=== PATIENT | male | born 1990 | race African-American/Black ===

== ENCOUNTER 2020-03-17 10:54 | Emergency (ER) | payer MEDICAID ==
[~2020-03-17] VITALS: Ht 175.3 cm; Wt 72.7 kg
[~2020-03-17 10:54] MED LIST: PALI39DI IM; RISP0.5T20 PO
[2020-03-17] MEDS ORDERED: LORazepam 1 MG TABLET PO ONE (11:30)
[2020-03-17] MEDS ORDERED: KETOROLAC TROMETHAMINE 60 MG/2 ML VIAL IM ONE (12:30)
[2020-03-17 13:05] VITALS: BP 137/81
[2020-03-17] MEDS ORDERED: HALO2 PO (21:50)
== END 2020-03-17 13:28 | disposition home or self-care (01) ==
LOC: EMS 10:55
DX: R07.89 Other chest pain (principal); F45.8 Other somatoform disorders; F15.90 Other stimulant use, unspecified, uncomplicated; J45.909 Unspecified asthma, uncomplicated; F17.200 Nicotine dependence, unspecified, uncomplicated; F12.90 Cannabis use, unspecified, uncomplicated; F19.90 Other psychoactive substance use, unspecified, uncomplicated
CPT/HCPCS: 36415; 71045; 84484; 93005; 99285; J1885

== ENCOUNTER 2020-03-17 21:43 | Emergency (ER) | payer MEDICAID ==
[~2020-03-17] VITALS: Ht 177.8 cm; Wt 70.9 kg
[2020-03-17] MEDS ORDERED: HALO2 PO (21:50)
[2020-03-17 23:45] LABS: GLUCOSE,POINT OF CARE 103 MG/DL (70-110)
[2020-03-18 00:03] LABS: BASOPHILS % (AUTO) 0.4 % (0.0-2.0); EOSINOPHILS % (AUTO) 0.9 % (1.0-6.0); HEMATOCRIT 47.4 % (41-53); HEMOGLOBIN 16.2 g/dL (13.5-17.5); LYMPHOCYTES # (AUTO) 3.5 K/uL (1.0-4.8); MEAN CORPUSCULAR HEMOGLOBIN 31.9 pg (26.0-34.0); MEAN CORPUSCULAR HGB CONC 34.1 G/dL (31.0-37.0); MEAN CORPUSCULAR VOLUME 94 fL (80-100); MONOCYTES # (AUTO) 0.6 K/uL (0.1-1.0); MONOCYTES % (AUTO) 6.1 % (2.0-9.0); NEUTROPHILS # (AUTO) 6.3 K/uL (1.8-7.7); NEUTROPHILS % (AUTO) 59.6 % (40.0-70.0); PLATELET COUNT (AUTO) 271 K/uL (150-450); RED BLOOD CELL COUNT(AUTO) 5.06 MIL/uL (4.50-5.90); RED CELL DISTRIBUTION WIDTH 12.6 % (11.5-14.5)
[2020-03-18 00:08] LABS: ANION GAP 9 mmol/L (8-16); CALCIUM, TOTAL 9.3 mg/dL (8.8-10.5); CARBON DIOXIDE 29 mmol/L (22-29); CHLORIDE 102 mmol/L (98-107); CREATININE 0.92 mg/dL (0.60-1.30); GLOMERULAR FILTR. RATE CALC > 60 mL/min (>60); GLUCOSE,RANDOM 110 mg/dL (70-110); POTASSIUM 4.5 mmol/L (3.5-5.1); SODIUM SERUM 140 mmol/L (136-145); UREA NITROGEN, BLOOD 8 mg/dL (7-18)
[2020-03-18 00:14] LABS: ALANINE AMINOTRANSFERASE 19 U/L (12-78); ALBUMIN 4.3 g/dL (3.4-5.0); ALKALINE PHOSPHATASE 60 U/L (46-116); ASPARTATE AMINOTRANSFERASE 16 U/L (15-37); BILIRUBIN,TOTAL 0.8 mg/dL (0.1-1.0); TOTAL PROTEIN, SERUM 8.4 g/dL (6.4-8.2)
[2020-03-18 01:32] LABS: FREE T4 (FREE THYROXINE) 1.52 ng/dL (0.76-1.46); THYROID STIMULATING HORMONE 1.53 uIU/mL (0.36-3.74)
[2020-03-18 01:38] VITALS: BP 101/62
== END 2020-03-18 02:17 | disposition home or self-care (01) ==
LOC: EMS 21:44
DX: F41.0 Panic disorder [episodic paroxysmal anxiety] (principal); R07.89 Other chest pain; J45.909 Unspecified asthma, uncomplicated; F15.90 Other stimulant use, unspecified, uncomplicated; Z88.8 Allergy status to other drugs, medicaments and biological substances
CPT/HCPCS: 84439; 84443; 93005

== ENCOUNTER 2020-03-26 01:08 | Emergency (ER) | payer MEDICAID ==
[~2020-03-26] VITALS: Ht 177.8 cm; Wt 70.9 kg
[~2020-03-26 01:08] MED LIST changes: +HALO2 PO; -PALI39DI IM; -RISP0.5T20 PO
[2020-03-26 01:14] VITALS: BP 178/107
== END 2020-03-26 02:00 | disposition left against medical advice (07) ==
LOC: EMS 01:08
DX: F15.10 Other stimulant abuse, uncomplicated (principal)

== ENCOUNTER 2020-05-19 23:11 | Emergency (ER) | payer MEDICAID ==
[~2020-05-19] VITALS: Ht 177.8 cm; Wt 65.9 kg
[2020-05-20 02:01] VITALS: BP 137/73
== END 2020-05-20 02:05 | disposition home or self-care (01) ==
LOC: EMS 23:11
DX: R07.9 Chest pain, unspecified (principal); F15.10 Other stimulant abuse, uncomplicated; F12.90 Cannabis use, unspecified, uncomplicated; Z88.8 Allergy status to other drugs, medicaments and biological substances
CPT/HCPCS: 93005; 71046; 71046-TC